=== PATIENT | male | born 1995 | race Caucasian/White ===

== ENCOUNTER 2023-05-11 08:45 | Emergency (ER) | payer BC ==
--- NOTE | 2023-05-11 10:09 | ED Physician Documentation ---
PD HPI BACK PAIN - Stated complaint Stated Complaint: BACK PX - Chief complaint Chief Complaint: Back Pain - History obtained from History obtained from: Patient - History of Present Illness Timing - onset: How many days ago (2-3) Timing - duration: Days (2-3) Timing - details: Abrupt onset (awoke from camping with pain in right parathoracic area that has persisted and worsened, with spasms in the area and pain with shoulder/back movement. No dspnea, cough nor pain with breathing normally (but hurts if deep breath).), Still present Location: Mid, Right (just right of midline in lower medial scapular area.) Review of Systems Constitutional: denies: Fever, Chills Cardiac: denies: Chest pain / pressure Respiratory: denies: Dyspnea, Cough Skin: denies: Rash, Lesions Neurologic: denies: Focal weakness, Numbness PD PAST MEDICAL HISTORY - Past Medical History Past Medical History: No Cardiovascular: None Respiratory: None Neuro: None Endocrine/Autoimmune: None GI: None : None HEENT: None Psych: None Musculoskeletal: None Derm: None - Past Surgical History Past Surgical History: Yes General: Appendectomy Ortho: Arthroscopic surgery - Present Medications Home Medications: Ambulatory Orders Medication Instructions Recorded Confirmed Finasteride [Propecia] 1 mg PO DAILY 05/11/23 05/11/23 HYDROcod/ACETAM 5/325 [[place] 5/325] 1 ea PO Q6H PRN #12 tablet 05/11/23 methocarbamoL [Robaxin] 500 mg PO Q6H PRN #30 tablet 05/11/23 minoxidiL [Minoxidil] 2.5 mg PO DAILY 05/11/23 05/11/23 - Allergies Allergies/Adverse Reactions: Allergies Allergy/AdvReac Type Severity Reaction Status Date / Time No Known Drug Allergies Allergy Verified 05/11/23 09:04 - Social History Does the pt smoke?: No Smoking Status: Never smoker Does the pt drink ETOH?: Yes Does the pt have substance abuse?: No - Immunizations Immunizations are current?: Yes PD ED PE NORMAL - Vitals Vital signs reviewed: Yes - General General: Alert and oriented X 3, No acute distress, Well developed/nourished - Abdomen Abdomen: Soft, Non tender - Back Back: No CVA TTP, No spinal TTP, Other (he is tender right parathoracic muscle at lower part of scapula. No redness, sores, rash. Focal muscle tenderness with spasm. ) Results - Vitals Vitals: Vital Signs - 24 hr 05/11/23 05/11/23 09:05 10:56 Temperature 36.5 C Heart Rate 67 60 Respiratory 16 16 Rate Blood Pressure 136/82 H 129/69 O2 Saturation 100 98 Oxygen O2 Source Room air PD Medical Decision Making - ED course Complexity details: considered differential (has a sore muscle area without notable injury. Had been camping so may have had uneven ground, etc. No appearance of bite nor sting, abrasion nor cut. I discussed trigger point injection with pt and he is agreeable. Otherwise meds for spasm and pain. ), d/w patient ED course: point injection in area of point tenderness right parathoracic muscle. lidocaine 1% iwth kenalog 40 mg/ml into tender muscle area without problems. Departure - Departure Disposition: 01 Home, Self Care Clinical Impression: Strain of thoracic back region Condition: Stable Record reviewed to determine appropriate education?: Yes Instructions: ED Spasm Back No Trauma Prescriptions: HYDROcod/ACETAM 5/325 [[place] 5/325] 1 ea PO Q6H PRN #12 tablet PRN Reason: Pain methocarbamoL [Robaxin] 500 mg PO Q6H PRN #30 tablet PRN Reason: Spasms Comments: This seems like a muscular strain or irritation with spasming. Heat and gentle stretching for the area. Local massage or pressure may be helpful. We did do an injection in the area with some lidocaine and a steroid to try to get a local effect. Continue with some oral anti-inflammatory such as ibuprofen or naproxen 2-3 times daily. Add Robaxin muscle relaxant for spasms and stiffness. To that add Tylenol every 4-6 hours if needed for pain or hydrocodone/acetaminophen if needed for worse pain. Activity as tolerated. I would anticipate improvement in this over several days and resolved by several days to week. I sent your prescriptions to [facility] in [place]. I am prescribing a short course of narcotic pain medication for you. These are potentially dangerous and addictive medications that should be used carefully. These medications may constipate you. Take an [id number] stool softener such as docusate twice daily with plenty of water while taking these medications. If you go 24 hours without a bowel movement, take [id number] MiraLAX, per package instructions. Do not drink or drive while taking these medications. If you received narcotic or sedating medications while in the emergency department do not drive for 24 hours. Store this medication in a safe, secure place and out of reach of children. It is a violation of federal law to give or sell this medication to another person or to use in a manner other than prescribed. The ED will not refill narcotic prescriptions, including prescriptions lost or stolen. You can dispose of unwanted medications at the [facility]'s office or at several pharmacies such as [facility]. Discharge Date/Time: 05/11/23 11:00
[2023-05-11] MEDS ORDERED: TRIAMCINOLONE 40 MG/ML VIAL MC STA (10:22)
[2023-05-11] MEDS ORDERED: methocarbamoL 500 MG TABLET PO STA (10:22)
[2023-05-11] MEDS ORDERED: ACETAMINOPHEN 325 MG TABLET PO STA (10:22)
[2023-05-11 11:00] VITALS: BP 129/69; O2SAT 98
== END 2023-05-11 11:00 | disposition home or self-care (01) ==
LOC: ED 08:45
DX: S29.012A Strain of muscle and tendon of back wall of thorax, initial encounter (principal); X58.XXXA Exposure to other specified factors, initial encounter
CPT/HCPCS: 20552; 99283; A9270

== ENCOUNTER 2023-06-13 10:25 | Emergency (ER) | payer BC ==
[2023-06-13 10:37] VITALS: O2SAT 100
[2023-06-13 10:48] LABS: BASOPHILS % (AUTO) 0.4 %; EOSINOPHILS # (AUTO) 0.1 10^3/uL (0.0-0.7); EOSINOPHILS % (AUTO) 1.1 %; HCT - HEMATOCRIT 47.1 % (42.0-52.0); LYMPHOCYTES # (AUTO) 2.1 10^3/uL (1.5-3.5); LYMPHOCYTES % (AUTO) 40.1 %; MEAN CORPUSCULAR HEMOGLOBIN 32.1 pg (27.0-31.0); MEAN CORPUSCULAR VOLUME 94.4 fL (80.0-94.0); MEAN PLATELET VOLUME 9.6 fL (7.4-11.4); MONOCYTES # (AUTO) 0.3 10^3/uL (0.0-1.0); MONOCYTES % (AUTO) 4.7 %; NEUTROPHILS # (AUTO) 2.8 10^3/uL (1.5-6.6); NEUTROPHILS % (AUTO) 53.5 %; PLT - PLATELET COUNT 208 10^3/uL (130-450); RED BLOOD COUNT 4.99 10^6/uL (4.70-6.10); RED CELL DISTRIBUTION WIDTH 12.3 % (12.0-15.0); WHITE BLOOD COUNT 5.3 x10^3/uL (4.8-10.8)
[2023-06-13 10:57] LABS: ALBUMIN 5.1 g/dL (3.2-5.5); ALBUMIN/GLOBULIN RATIO 2.3 (1.0-2.2); BILIRUBIN,TOTAL 0.6 mg/dL (0.2-1.0); CALCIUM 10.3 mg/dL (8.5-10.3); CREATININE 1.3 mg/dL (0.6-1.3); POTASSIUM 4.3 mmol/L (3.5-4.5); TOTAL PROTEIN 7.3 g/dL (6.4-8.9)
--- NOTE | 2023-06-13 13:29 | ED Physician Documentation ---
PD HPI ABD PAIN - Stated complaint Stated Complaint: LOWER ABD PX - Chief complaint Chief Complaint: Abd Pain - History obtained from History obtained from: Patient - Additional information Additional information: 4 days of left testicular pain, mostly persistent but worse throughout the day. No urinary complaints. No bowel complaints. Has a history of remote appendectomy. No vomiting. Sexually active with single female partner for the last 5 years. PD PAST MEDICAL HISTORY - Past Medical History Cardiovascular: None Respiratory: None Neuro: None Endocrine/Autoimmune: None GI: None : None HEENT: None Psych: None Musculoskeletal: None Derm: None - Past Surgical History Past Surgical History: Yes General: Appendectomy Ortho: Arthroscopic surgery - Present Medications Home Medications: Ambulatory Orders Medication Instructions Recorded Confirmed Finasteride [Propecia] 1 mg PO DAILY 05/11/23 06/13/23 minoxidiL [Minoxidil] 2.5 mg PO DAILY 05/11/23 06/13/23 Amox/Clav 875/125 [Augmentin] 1 each PO Q12H #14 tablet 06/13/23 - Allergies Allergies/Adverse Reactions: Allergies Allergy/AdvReac Type Severity Reaction Status Date / Time No Known Drug Allergies Allergy Verified 05/11/23 09:04 - Social History Does the pt smoke?: No Smoking Status: Never smoker Does the pt drink ETOH?: Yes Does the pt have substance abuse?: No - Immunizations Immunizations are current?: Yes PD ED PE NORMAL - Vitals Vital signs reviewed: Yes - General General: Alert and oriented X 3, No acute distress - HEENT HEENT: PERRL, EOMI - Neck Neck: Supple, no meningeal sign, No bony TTP - Cardiac Cardiac: RRR, No murmur - Respiratory Respiratory: No respiratory distress, Clear bilaterally - Abdomen Abdomen: Normal bowel sounds, Soft, Non tender - Male Male : Other (Lower abdomen is nontender, mild tenderness at the superior portion of left testicle without palpable abnormality. Normal lie. Normal cremaster reflex. Mild tenderness in the inguinal area as well, but no hernia mass or palpable adenopathy.) - Neuro Neuro: Alert and oriented X 3 Results - Vitals Vitals: Vital Signs - 24 hr 06/13/23 06/13/23 10:30 13:52 Temperature 36.8 C Heart Rate 73 51 L Respiratory 16 18 Rate Blood Pressure 117/84 H 145/83 H O2 Saturation 100 100 Oxygen O2 Source Room air - Labs Labs: Laboratory Tests 06/13/23 06/13/23 06/13/23 10:40 10:40 11:40 WBC 5.3 RBC 4.99 Hgb 16.0 Hct 47.1 MCV 94.4 H MCH 32.1 H MCHC 34.0 RDW 12.3 Plt Count 208 MPV 9.6 Neut # (Auto) 2.8 Lymph # (Auto) 2.1 Levy # (Auto) 0.3 Eos # (Auto) 0.1 Baso # (Auto) 0.0 Absolute Nucleated RBC 0.00 Nucleated RBC % 0.0 Sodium 140 Potassium 4.3 Chloride 103 Carbon Dioxide 33 H Anion Gap 4.0 L BUN 29 H Creatinine 1.3 Estimated GFR (MDRD) 67 L Glucose 77 Calcium 10.3 Total Bilirubin 0.6 AST 16 ALT 18 Alkaline Phosphatase 57 Total Protein 7.3 Albumin 5.1 Globulin 2.2 Albumin/Globulin Ratio 2.3 H Lipase 14 Urine Color YELLOW Urine Clarity CLEAR Urine pH 6.0 Ur Specific [place] <=1.005 Urine Protein NEGATIVE Urine Glucose (UA) NEGATIVE Urine Ketones NEGATIVE Urine Occult Blood NEGATIVE Urine Nitrite NEGATIVE Urine Bilirubin NEGATIVE Urine Urobilinogen 0.2 (NORMAL) Ur Leukocyte Esterase NEGATIVE Ur Microscopic Review NOT INDICATED Urine Culture Comments NOT INDICATED - Rads (name of study) Testicular ultrasound showed a moderate left hydrocele, CT of the abdomen pelvis demonstrating colitis Relevant Findings:: Final report received, EMP independent interpretation of fozia LINDSEY Medical Decision Making - ED course ED course: 27-year-old with left lower quadrant and testicular pain. Differential diagno sis would include renal colic, diverticulitis, hernia, torsion, although that would be less likely given 4 days of mild pain and normal exam. Ultrasound showing a left hydrocele but I followed with a CT suspecting that would not be the symptomatic lesion and CT showing descending colitis. We will treat with antibiotics. Departure - Departure Disposition: 01 Home, Self Care Clinical Impression: Colitis, Testicular pain, left Condition: Good Record reviewed to determine appropriate education?: Yes Prescriptions: Amox/Clav 875/125 [Augmentin] 1 each PO Q12H #14 tablet Comments: Although you have left hydrocele, this is a very common finding and less likely to be symptomatic than the colitis we found on CT. For this I am prescribing some antibiotics. Follow-up with your primary care physician, next available appointment. They may want to refer you for colonoscopy especially if symptoms do not improve. Return if worse. Forms: PCP List
[2023-06-13 13:40] LABS: BILIRUBIN,URINE NEGATIVE (NEGATIVE); GLUCOSE, URINE (UA) NEGATIVE (NEGATIVE); KETONES,URINE (UA) NEGATIVE (NEGATIVE); LEUKOCYTE ESTERASE, URINE NEGATIVE (NEGATIVE); NITRITE,URINE NEGATIVE (NEGATIVE); OCCULT BLOOD,URINE NEGATIVE (NEGATIVE); PROTEIN,URINE NEGATIVE (NEGATIVE); UROBILINOGEN,URINE 0.2 (NORMAL) E.U./dL (NORMAL)
[2023-06-13 13:41] LABS: CLARITY,URINE CLEAR (CLEAR)
--- NOTE | 2023-06-13 15:02 | Ultrasound Report ---
PROCEDURE: Testicle w/Doppler INDICATIONS: l testicular pain TECHNIQUE: Real-time scanning was performed of the scrotum and testicles, with image documentation. Color and p ulse Doppler interrogation was performed of both testicles. COMPARISON: None. FINDINGS: Right: Testicle is normal in size at 4 x 2.2 x 2.9 cm, and homogenous in echotexture. Epididymis is normal in overall size and morphology. No hydrocele. No varicoceles. Overlying scrotal skin is nor mal in thickness. Left: Testicle is normal in size at 3.6 x 2.2 x 2.3 cm, and homogeneous in echotexture. Epididymis is normal in overall size and morphology. There is a moderate left-sided hydrocele. No varicoceles. Overlying scrotal skin is normal in thickness. Doppler: Color and pulse Doppler demonstrate normal and symmetric arterial flow in both testicles. IMPRESSION: Moderate left-sided hydrocele. Normal-appearing testicles, without masses or abnormal vascularity. Reviewed by: José Kumar MD on 06/13/2023 2:00 PM DEEPAK Approved by: José Kumar MD on 06/13/2023 2:00 PM DEEPAK Station ID: [id number]
[2023-06-13] MEDS ORDERED: iohexoL-300 100 ML VIAL IVP ONE (15:21)
--- NOTE | 2023-06-13 15:36 | CT Report ---
PROCEDURE: ABDOMEN/PELVIS W INDICATIONS: IV only LLQ pain CONTRAST: 100ml omni 300 TECHNIQUE: After the administration of IV contrast, 5 mm thick sections acquired from the diaphragms to the symp hysis. 5 mm thick coronal and sagittal reformats were acquired. For radiation dose reduction, the f ollowing was used: automated exposure control, adjustment of mA and/or kV according to patient size. COMPARISON: None. FINDINGS: Image quality: Excellent. Lung bases and heart: Unremarkable. Liver: No solid mass. Gallbladder and biliary tree: Within normal limits. Spleen: No splenomegaly. Pancreas: No pancreatic ductal dilation. Adrenals: No adrenal nodule. Kidneys and ureters: No hydronephrosis. No renal cystic lesion which requires follow up. No solid mas s. Bowel and peritoneum: Moderate wall thickening is seen involving the descending colon, with mild surr ounding inflammatory change. The more proximal colon is within normal limits. No findings of perforat ion or abscess can be seen. No significant free fluid can be seen. No dilated loops of small bowel are seen. The stomach is relatively decompressed at the time of this study, limiting its evaluation. Lymph nodes: No central or retroperitoneal adenopathy. Vessels: No infrarenal aortic aneurysm. PELVIS Reproductive organs: Unremarkable. Bladder: No abnormal wall thickening, accounting for underdistension. Pelvic lymph nodes: No pelvic adenopathy by size criteria. Bones: No aggressive osseous abnormality. Other: No significant ventral or inguinal hernia. IMPRESSION: Moderate wall thickening involving the descending colon, with surrounding inflammatory change. Please relate with potential infectious and inflammatory causes of colitis. No findings of perforation or abscess can be seen. Reviewed by: José Kumar MD on 06/13/2023 2:35 PM DEEPAK Approved by: José Kumar MD on 06/13/2023 2:35 PM DEEPAK Station ID: [id number]
[2023-06-13 15:58] LABS: CHLAMYDIA TRACHOMATIS DNA NEGATIVE (NEGATIVE); NEISSERIA GONORRHOEAE DNA NEGATIVE (NEGATIVE); TRICHOMONAS VAGINALIS DNA NEGATIVE (NEGATIVE)
[2023-06-13 16:08] VITALS: BP 128/71
== END 2023-06-13 16:06 | disposition home or self-care (01) ==
LOC: ED 10:25
DX: K52.9 Noninfective gastroenteritis and colitis, unspecified (principal); N43.3 Hydrocele, unspecified
CPT/HCPCS: 36415; 74177; 76870; 80053; 81003; 83690; 85025; 87491; 87591; 87661; 93975; 99284; Q9967; 81001; 87086

== ENCOUNTER 2023-06-21 16:41 | Emergency (ER) | payer BC ==
[2023-06-21 16:58] VITALS: O2SAT 98
[2023-06-21 18:56] LABS: BASOPHILS % (AUTO) 0.5 %; EOSINOPHILS # (AUTO) 0.1 10^3/uL (0.0-0.7); EOSINOPHILS % (AUTO) 1.1 %; HCT - HEMATOCRIT 41.7 % (42.0-52.0); HGB - HEMOGLOBIN 14.3 g/dL (14.0-18.0); LYMPHOCYTES # (AUTO) 2.7 10^3/uL (1.5-3.5); LYMPHOCYTES % (AUTO) 40.4 %; MEAN CORPUSCULAR HEMOGLOBIN 32.2 pg (27.0-31.0); MEAN CORPUSCULAR HGB CONC 34.3 g/dL (32.0-36.0); MEAN CORPUSCULAR VOLUME 93.9 fL (80.0-94.0); MEAN PLATELET VOLUME 9.5 fL (7.4-11.4); MONOCYTES # (AUTO) 0.4 10^3/uL (0.0-1.0); MONOCYTES % (AUTO) 5.7 %; NEUTROPHILS # (AUTO) 3.5 10^3/uL (1.5-6.6); NEUTROPHILS % (AUTO) 52.1 %; PLT - PLATELET COUNT 198 10^3/uL (130-450); RED BLOOD COUNT 4.44 10^6/uL (4.70-6.10); RED CELL DISTRIBUTION WIDTH 12.3 % (12.0-15.0); WHITE BLOOD COUNT 6.6 x10^3/uL (4.8-10.8)
[2023-06-21 19:10] LABS: ALBUMIN 4.8 g/dL (3.2-5.5); ALBUMIN/GLOBULIN RATIO 2.1 (1.0-2.2); BILIRUBIN,TOTAL 0.4 mg/dL (0.2-1.0); CALCIUM 9.8 mg/dL (8.5-10.3); CREATININE 1.2 mg/dL (0.6-1.3); POTASSIUM 4.1 mmol/L (3.5-4.5); TOTAL PROTEIN 7.1 g/dL (6.4-8.9)
[2023-06-21 20:01] LABS: BILIRUBIN,URINE NEGATIVE (NEGATIVE); GLUCOSE, URINE (UA) NEGATIVE (NEGATIVE); KETONES,URINE (UA) NEGATIVE (NEGATIVE); LEUKOCYTE ESTERASE, URINE NEGATIVE (NEGATIVE); NITRITE,URINE NEGATIVE (NEGATIVE); OCCULT BLOOD,URINE NEGATIVE (NEGATIVE); PH,URINE 5.5 PH (5.0-7.5); PROTEIN,URINE NEGATIVE (NEGATIVE); UROBILINOGEN,URINE 0.2 (NORMAL) E.U./dL (NORMAL)
[2023-06-21 20:09] LABS: CLARITY,URINE CLEAR (CLEAR)
--- NOTE | 2023-06-21 21:47 | ED Physician Documentation ---
History of Present Illness - Stated complaint Stated Complaint: LT ABD PX - Chief complaint Chief Complaint: Abd Pain - Additonal information Additional information: Patient 27-year-old male presenting to the emergency department chief complaint abdominal pain. Recently evaluated our facility and diagnosed with colitis. Completed a course of Augmentin yesterday. Reports today had some increased abdominal pain. No fever, nausea, vomiting. He does report ongoing diarrhea however states that it is somewhat improved. Denies blood in stool. Review of Systems Constitutional: denies: Fever GI: reports: Abdominal Pain, Diarrhea. denies: Nausea, Vomiting PD PAST MEDICAL HISTORY - Past Medical History Past Medical History: Yes Cardiovascular: None Respiratory: None Neuro: None Endocrine/Autoimmune: None GI: None : None HEENT: None Psych: None Musculoskeletal: None Derm: None - Past Surgical History Past Surgical History: Yes General: Appendectomy Ortho: Arthroscopic surgery - Present Medications Home Medications: Ambulatory Orders Medication Instructions Recorded Confirmed Finasteride [Propecia] 1 mg PO DAILY 05/11/23 06/13/23 minoxidiL [Minoxidil] 2.5 mg PO DAILY 05/11/23 06/13/23 Amox/Clav 875/125 [Augmentin] 1 each PO Q12H #14 tablet 06/13/23 - Allergies Allergies/Adverse Reactions: Allergies Allergy/AdvReac Type Severity Reaction Status Date / Time No Known Drug Allergies Allergy Verified 06/21/23 16:55 - Social History Does the pt smoke?: No Smoking Status: Never smoker Does the pt drink ETOH?: Yes Does the pt have substance abuse?: No - Immunizations Immunizations are current?: Yes PD ED PE NORMAL - Vitals Vital signs reviewed: Yes - General General: Alert and oriented X 3 - HEENT HEENT: Atraumatic - Neck Neck: Supple, no meningeal sign - Cardiac Cardiac: RRR - Respiratory Respiratory: No respiratory distress - Abdomen Abdomen: Normal bowel sounds, Soft, Non tender, Non distended, No organomegaly Results - Vitals Vitals: Vital Signs - 24 hr 06/21/23 06/21/23 16:55 20:00 Temperature 36.8 C Heart Rate 62 64 Respiratory 16 18 Rate Blood Pressure 130/63 129/82 H O2 Saturation 98 98 Oxygen O2 Source Room air - Labs Labs: Laboratory Tests 06/21/23 06/21/23 06/21/23 18:51 18:51 19:56 WBC 6.6 RBC 4.44 L Hgb 14.3 Hct 41.7 L MCV 93.9 MCH 32.2 H MCHC 34.3 RDW 12.3 Plt Count 198 MPV 9.5 Neut # (Auto) 3.5 Lymph # (Auto) 2.7 [place] # (Auto) 0.4 Eos # (Auto) 0.1 Baso # (Auto) 0.0 Absolute Nucleated RBC 0.00 Nucleated RBC % 0.0 Sodium 139 Potassium 4.1 Chloride 105 Carbon Dioxide 30 Anion Gap 4.0 L BUN 23 H Creatinine 1.2 Estimated GFR (MDRD) 74 L Glucose 88 Calcium 9.8 Total Bilirubin 0.4 AST 15 ALT 17 Alkaline Phosphatase 60 Total Protein 7.1 Albumin 4.8 Globulin 2.3 Albumin/Globulin Ratio 2.1 Lipase 12 Urine Color YELLOW Urine Clarity CLEAR Urine pH 5.5 Ur Specific [place] >=1.030 H Urine Protein NEGATIVE Urine Glucose (UA) NEGATIVE Urine Ketones NEGATIVE Urine Occult Blood NEGATIVE Urine Nitrite NEGATIVE Urine Bilirubin NEGATIVE Urine Urobilinogen 0.2 (NORMAL) Ur Leukocyte Esterase NEGATIVE Ur Microscopic Review NOT INDICATED Urine Culture Comments NOT INDICATED PD Medical Decision Making - ED course Complexity details: reviewed results, d/w patient ED course: Patient 27-year-old male presenting to the emergency department with ongoing abdominal pain in setting recent diagnosis colitis. Afebrile, hemodynamically stable. Abdominal exam benign. No guarding, rebound, rigidity that would be indicative of peritonitis. No focal tenderness that would be of concern for developing abscess or other perforation. Labs reviewed, within normal limits or nonactionable. No significant uptrend in white blood cell count that would indicate a worsening infection. Patient monitored for several hours. No diarrheal episodes during that time period. Offered medication for pain control which was declined. At this time I do not see an indication for repeat CT. He was offered medication for pain control to go home with which she also declined. I encouraged regular use acetaminophen and probiotics as well as careful follow-up with primary care return to the emergency department for symptoms that are persistent or worsening over the course the next 48 hours. Departure - Departure Disposition: Home, Self Care Clinical Impression: Abdominal pain Qualifiers: Abdominal location: unspecified location Qualified Code(s): R10.9 - Unspecified abdominal pain Comments: Thank you for allowing us to care for you today at [facility]. Your lab work in the emergency department today was all very reassuring. I do not see any indication of worsening or recurrent colitis or other complication. As we discussed I do not think there is an indication for repeat CT at this time.I would like you to begin a probiotic supplement which can be obtained at most major pharmacies as well as increase your intake and fiber full foods and natural probiotics such as yogurt and cottage cheese. You can take acetaminophen for ongoing pain as needed. If your symptoms are not improving over the course of the next 24 to 48 hours or if they are worsening at any time such as increasing pain, fever, blood in stool please return to the emergency department immediately for reevaluation.
[2023-06-21 22:03] VITALS: BP 132/85
== END 2023-06-21 21:53 | disposition home or self-care (01) ==
LOC: ED 16:41
DX: R10.9 Unspecified abdominal pain (principal)
CPT/HCPCS: 36415; 80053; 81001; 81003; 83690; 85025; 87086; 99283

== ENCOUNTER 2023-07-01 10:37 | Outpatient (CLI) | payer BC ==
[2023-07-01 11:18] LABS: H. PYLORIS ANTIGEN STL NEGATIVE (Negative)
[2023-07-01 11:27] LABS: FECAL OCCULT BLOOD (FIT) NEGATIVE (NEGATIVE)
== END 2023-07-01 10:38 | disposition home or self-care (01) ==
LOC: LAB.R 10:37
PROVIDERS: ATTEND Physician Assistant Medical
DX: K52.9 Noninfective gastroenteritis and colitis, unspecified (principal)
CPT/HCPCS: 82274; 83993; 87045; 87046; 87329; 87338; 87427; 87493